=== PATIENT | female | born 1945 ===

== ENCOUNTER 2016-05-16 10:05 | Emergency (ER) | payer MEDICARE ==
[~2016-05-16] VITALS: Ht 162.6 cm; Wt 82.0 kg
[~2016-05-16 10:05] MED LIST: AMOXICILLIN/PO500 MG PO; ASTHMA INHALER; AUGMENTIN500TAB PO; AUGMENTIN875TAB PO; CEFTIN500 MG PO; CEPHALEXIN500 MG PO; KEFLEX500 MG PO; LIORESAL10 MG/TA1 PO; MEDDOSEPAK PO; NO MEDS; PREDNISONE20 MG PO; TAM75CAP PO; TESSALON PER100 MG PO; TYLENOL325 MG OR; ZPAK PO
[2016-05-16 10:43] VITALS: BP 157/81
== END 2016-05-16 11:04 | disposition home or self-care (01) ==
LOC: ED 10:05
DX: I83.892 Varicose veins of left lower extremity with other complications (principal)

== ENCOUNTER 2016-10-16 11:27 | Emergency (ER) | payer MEDICARE ==
[~2016-10-16] VITALS: Ht 162.6 cm; Wt 79.4 kg
[2016-10-16] MEDS ORDERED: ULTRAM50 M1 PO (15:06)
[2016-10-16 15:09] VITALS: BP 170/71
== END 2016-10-16 15:18 | disposition home or self-care (01) ==
LOC: ED 11:27
DX: S09.90XA Unspecified injury of head, initial encounter (principal); S40.011A Contusion of right shoulder, initial encounter; S80.01XA Contusion of right knee, initial encounter; W01.0XXA Fall on same level from slipping, tripping and stumbling without subsequent striking against object, initial encounter; Y93.E9 Activity, other interior property and clothing maintenance; Y92.009 Unspecified place in unspecified non-institutional (private) residence as the place of occurrence of the external cause

== ENCOUNTER 2017-09-25 18:45 | Observation (INO) | payer MEDICARE ==
[~2017-09-25] VITALS: Ht 162.6 cm; Wt 82.0 kg
[~2017-09-25 18:45] MED LIST changes: +ULTRAM50 M1 PO
[2017-09-25] MEDS ORDERED: ALBUTEROL0.63 MG/3 IN (19:15)
[2017-09-25] MEDS ORDERED: TRAMADOL HYDROC50 MG PO (19:16)
[2017-09-25 19:17] LABS: HEMATOCRIT 39.3 % (37.0-47.0); HEMOGLOBIN 12.7 g/dl (12.0-16.0); IMMATURE GRANULOCYTES 0.5 % (0.0-5.0); MEAN CELL VOLUME 84.9 fL CALC (80.0-100.0); MEAN CORPUSCULAR HGB 27.4 pG CALC (26.0-32.0); MEAN CORPUSCULAR HGB CONC 32.3 g/L CALC (32.0-36.0); NEUT# 4.13 thou/uL (2.00-7.15); RED BLOOD COUNT 4.63 mill/uL (4.20-5.60); RED CELL DISTRI WIDTH 13.5 % (11.5-15.5)
[2017-09-25 19:30] LABS: ALBUMIN 4.5 g/dL (3.2-5.0); ALKALINE PHOSPHATASE 111 u/l (38-126); ANION GAP 16 (6-22 (CALC)); BILIRUBIN, TOTAL 0.7 mg/dL (0.0-1.4); BUN 21 mg/dL (8-23); BUN/CREATININE RATIO 35 (12-20 (CALC)); CARBON DIOXIDE 21 mmol/l (22-30); CHLORIDE 107 mmol/l (95-108); CREATININE 0.6 mg/dL (0.5-1.0); GFR > 60 ML/MIN (>=60 (CALC)); GFR FOR AFR.AMER. > 60 ML/MIN (>=60 (CALC)); LIPASE 56 u/l (23-300); SGOT/AST 30 u/l (9-36); SGPT/ALT 36 u/l (11-66); SODIUM 141 mmol/l (137-146); TOTAL PROTEIN 8.1 g/dL (6.3-8.2)
[2017-09-25 19:44] LABS: POTASSIUM 3.2 mmol/l (3.5-5.1)
[2017-09-26 00:22] VITALS: BP 106/63
[2017-09-26 05:00] VITALS: BP 95/57
[2017-09-26 06:29] LABS: URINE BILIRUBIN - DIPSTICK NEGATIVE (NEGATIVE); URINE BLOOD DIPSTICK NEGATIVE (NEGATIVE); URINE COLOR YELLOW; URINE GLUCOSE - DIPSTICK NEGATIVE (NEGATIVE); URINE KETONE NEGATIVE (NEGATIVE); URINE LEUK ESTERASE NEGATIVE (NEGATIVE); URINE NITRITE - DIPSTICK NEGATIVE (Negative); URINE PH 5.5 (4.5-8.0); URINE PROTEIN - DIPSTICK NEGATIVE (NEG-TRACE); URINE UROBILINOGEN - DIPSTICK 0.2 E.U./dL (0.2)
[2017-09-26 06:33] LABS: URINE CLARITY CLEAR
[2017-09-26 07:50] VITALS: BP 145/74
[2017-09-26 12:41] VITALS: BP 126/60
[2017-09-26 17:15] VITALS: BP 131/71
[2017-09-26 18:13] LABS: HEMATOCRIT 39.8 % (37.0-47.0); HEMOGLOBIN 12.6 g/dl (12.0-16.0); MEAN CELL VOLUME 85.6 fL CALC (80.0-100.0); MEAN CORPUSCULAR HGB 27.1 pG CALC (26.0-32.0); MEAN CORPUSCULAR HGB CONC 31.7 g/L CALC (32.0-36.0); NEUT# 3.09 thou/uL (2.00-7.15); RED BLOOD COUNT 4.65 mill/uL (4.20-5.60); RED CELL DISTRI WIDTH 13.6 % (11.5-15.5)
[2017-09-26 18:26] LABS: ANION GAP 15 (6-22 (CALC)); BUN 11 mg/dL (8-23); BUN/CREATININE RATIO 19 (12-20 (CALC)); CARBON DIOXIDE 22 mmol/l (22-30); CHLORIDE 110 mmol/l (95-108); CREATININE 0.6 mg/dL (0.5-1.0); GFR > 60 ML/MIN (>=60 (CALC)); GFR FOR AFR.AMER. > 60 ML/MIN (>=60 (CALC)); SODIUM 143 mmol/l (137-146)
[2017-09-26 20:00] VITALS: BP 112/60
[2017-09-27 00:50] VITALS: BP 106/57
[2017-09-27 03:33] VITALS: BP 144/70
[2017-09-27 07:33] LABS: HEMATOCRIT 37.1 % (37.0-47.0); HEMOGLOBIN 11.4 g/dl (12.0-16.0); IMMATURE GRANULOCYTES 0.2 % (0.0-5.0); MEAN CELL VOLUME 88.5 fL CALC (80.0-100.0); MEAN CORPUSCULAR HGB 27.2 pG CALC (26.0-32.0); MEAN CORPUSCULAR HGB CONC 30.7 g/L CALC (32.0-36.0); NEUT# 2.31 thou/uL (2.00-7.15); RED BLOOD COUNT 4.19 mill/uL (4.20-5.60); RED CELL DISTRI WIDTH 13.8 % (11.5-15.5)
[2017-09-27 07:40] VITALS: BP 137/74
[2017-09-27 07:44] LABS: ANION GAP 13 (6-22 (CALC)); BUN 10 mg/dL (8-23); BUN/CREATININE RATIO 18 (12-20 (CALC)); CARBON DIOXIDE 18 mmol/l (22-30); CHLORIDE 113 mmol/l (95-108); CREATININE 0.5 mg/dL (0.5-1.0); GFR > 60 ML/MIN (>=60 (CALC)); GFR FOR AFR.AMER. > 60 ML/MIN (>=60 (CALC)); POTASSIUM 4.1 mmol/l (3.5-5.1); SODIUM 140 mmol/l (137-146)
== END 2017-09-27 12:04 | disposition home or self-care (01) ==
LOC: ED 18:45 → ED-I 19:50 → ED 20:14 → MS2 20:15
PROVIDERS: Family Medicine; ADMIT Internal Medicine Geriatric Medicine; ATTEND Internal Medicine Geriatric Medicine
DX: E86.0 Dehydration (principal); J45.909 Unspecified asthma, uncomplicated; I95.9 Hypotension, unspecified; I10 Essential (primary) hypertension; M19.90 Unspecified osteoarthritis, unspecified site; R55 Syncope and collapse; R11.2 Nausea with vomiting, unspecified

== ENCOUNTER 2017-10-06 19:45 | Observation (INO) | payer MEDICARE ==
[~2017-10-06] VITALS: Ht 162.6 cm; Wt 81.8 kg
[~2017-10-06 19:45] MED LIST changes: +ALBUTEROL0.63 MG/3 IN; +TRAMADOL HYDROC50 MG PO
[2017-10-06 20:22] LABS: HEMATOCRIT 41.9 % (37.0-47.0); IMMATURE GRANULOCYTES 0.3 % (0.0-5.0); MEAN CELL VOLUME 83.8 fL CALC (80.0-100.0); MEAN CORPUSCULAR HGB 27.4 pG CALC (26.0-32.0); MEAN CORPUSCULAR HGB CONC 32.7 g/L CALC (32.0-36.0); NEUT# 4.01 thou/uL (2.00-7.15); RED CELL DISTRI WIDTH 13.4 % (11.5-15.5)
[2017-10-06 20:27] LABS: HEMOGLOBIN 13.7 g/dl (12.0-16.0)
[2017-10-06 20:35] LABS: ALBUMIN 4.7 g/dL (3.2-5.0); ALKALINE PHOSPHATASE 116 u/l (38-126); BILIRUBIN, TOTAL 0.6 mg/dL (0.0-1.4); BUN 14 mg/dL (8-23); BUN/CREATININE RATIO 19 (12-20 (CALC)); CHLORIDE 104 mmol/l (95-108); CREATININE 0.7 mg/dL (0.5-1.0); GFR > 60 ML/MIN (>=60 (CALC)); GFR FOR AFR.AMER. > 60 ML/MIN (>=60 (CALC)); POTASSIUM 3.9 mmol/l (3.5-5.1); SGOT/AST 30 u/l (9-36); SGPT/ALT 40 u/l (11-66); SODIUM 143 mmol/l (137-146); TOTAL PROTEIN 8.5 g/dL (6.3-8.2)
[2017-10-06 20:37] LABS: ANION GAP 18 (6-22 (CALC)); CARBON DIOXIDE 25 mmol/l (22-30)
[2017-10-06 20:46] LABS: MYOGLOBIN 33 ng/mL (0 - 62)
--- NOTE | 2017-10-06 20:47 | NUR ---
PT ARRIVED VIA EMS AFTER DIZZINESS CALL. UPON ARRIVAL PT WAS FOUND TO BE APHASIC. COULD NOT EXPRESS ANSWERS TO QUESTION. PT CAN ANSWER SOME SIMPLE QUESTIONS BUT DOES HAVE SOME PROBLEMS EXPRESSING ANSWERS. SMALL AMOUNT OF FACIAL DROOP NOTED TO LEFT SIDE.
--- NOTE | 2017-10-06 21:35 | NUR ---
pt states that she is still feeling woozy. Denies nausea or vomiting. Tube Mill Operator are still equal, lower extremities still equal.
--- NOTE | 2017-10-06 21:54 | NUR ---
Talked to pt's son via telephone. He states that "he has never had a conversation with her like that before". States that she is "delerious". Pt is acting more coherent at this time.
--- NOTE | 2017-10-06 22:25 | NUR ---
STROKE ALERT PROCESS PAPERWORK DONE. STEPPED IN TO ASK PT HOW SHE IS FEELING NOW. PT STATES THAT SHE IS FEELING MUCH BETTER AT THIS TIME. FACIAL FOLD DROOP ON RIGHT SIDE HAS DISAPPEARED. PT IS TALKING MORE CLEAR & PERCISE AT THIS TIME.
[2017-10-06 23:04] LABS: URINE BILIRUBIN - DIPSTICK NEGATIVE (NEGATIVE); URINE BLOOD DIPSTICK NEGATIVE (NEGATIVE); URINE CLARITY CLEAR; URINE COLOR YELLOW; URINE GLUCOSE - DIPSTICK NEGATIVE (NEGATIVE); URINE KETONE NEGATIVE (NEGATIVE); URINE LEUK ESTERASE NEGATIVE (NEGATIVE); URINE NITRITE - DIPSTICK NEGATIVE (Negative); URINE PH 5.5 (4.5-8.0); URINE PROTEIN - DIPSTICK NEGATIVE (NEG-TRACE); URINE SPECIFIC GRAVITY <=1.005; URINE UROBILINOGEN - DIPSTICK 0.2 E.U./dL (0.2)
--- NOTE | 2017-10-06 23:26 | NUR ---
Admission Note Report Given to: ESTRELLA FERRER Transported by: Wheelchair X Stretcher Transported with: X Nurse Transporter X Patent IV X O2 Auditing Specialist TELEMETRY BOX #[id number]
[2017-10-06 23:41] VITALS: BP 156/76
--- NOTE | 2017-10-06 23:41 | NUR ---
PT TO ROOM 290 VIA STRETCHER ACCOMPANIED BY ER STAFF AND FRIEND. PT AMBULATED TO BED WITH MINIMAL ASSISTANCE. ORTHOSTATICS OBTAINED. ADMISSION ASSESSMENT COMPLETED AT THIS TIME. IV PATENT X1. PT IS ALERT AND ORIENTED X3. PT IS SLOW TO RESPOND TO QUESTIONS. PT ORIENTED TO ROOM AND UNIT AND CALL LIGHT SYSTEM. PT VERBALIZED UNDERSTANDING. CALL LIGHT IN REACH. WILL CONTINUE TO MONITOR
[2017-10-07] VITALS (9 sets, daily range): BP systolic 127–178; BP diastolic 71–78
--- NOTE | 2017-10-07 04:07 | NUR ---
PT RESTING IN BED WITH EYES CLOSED. RESP ARE EVEN AND UNLABORED. NO DISTRESS NOTED. CALL LIGHT IN REACH. WILL CONTINUE TO MONITOR
--- NOTE | 2017-10-07 04:30 | NUR ---
LAB INTO DRAW AM LABS
--- NOTE | 2017-10-07 05:23 | NUR ---
RADIOLOGY INTO COMPLETE AM XRAY
--- NOTE | 2017-10-07 06:05 | NUR ---
RT INTO COMPLETE AM EKG
[2017-10-07 06:06] LABS: HEMATOCRIT 39.1 % (37.0-47.0); HEMOGLOBIN 12.7 g/dl (12.0-16.0); IMMATURE GRANULOCYTES 0.2 % (0.0-5.0); MEAN CELL VOLUME 84.4 fL CALC (80.0-100.0); MEAN CORPUSCULAR HGB 27.4 pG CALC (26.0-32.0); MEAN CORPUSCULAR HGB CONC 32.5 g/L CALC (32.0-36.0); NEUT# 2.54 thou/uL (2.00-7.15); RED BLOOD COUNT 4.63 mill/uL (4.20-5.60); RED CELL DISTRI WIDTH 13.3 % (11.5-15.5)
[2017-10-07 06:13] LABS: ANION GAP 13 (6-22 (CALC)); BUN 12 mg/dL (8-23); BUN/CREATININE RATIO 21 (12-20 (CALC)); CARBON DIOXIDE 25 mmol/l (22-30); CHLORIDE 110 mmol/l (95-108); CREATININE 0.6 mg/dL (0.5-1.0); GFR > 60 ML/MIN (>=60 (CALC)); GFR FOR AFR.AMER. > 60 ML/MIN (>=60 (CALC)); POTASSIUM 3.7 mmol/l (3.5-5.1); SODIUM 144 mmol/l (137-146)
--- NOTE | 2017-10-07 07:00 | NUR ---
PT TRANSPORTED TO HAVE MRI, US AND CXR. VIA .
--- NOTE | 2017-10-07 08:45 | NUR ---
PT RETURNED FROM HAVING MRI, US AND CXR COMPLETED: ABLE TO TRANSFER FROM THE WC TO THE BED, VS STABLE. HR IS REG, PULSES ARE STRONG X4, ABD IS SOFT WITH ACTIVE BS.BREATH SOUNDS ARE CLEAR, BILATERALLY, NO C/O SOB, PT WAS TALKING AND INFORMED THIS COMMERCIAL SALES CONSULTANT THAT SHE HAD BEEN DIZZY BUT NOT AT THIS TIME,
--- NOTE | 2017-10-07 08:50 | NUR ---
CAME BACK AND SPOE WITH PT. PT EXPRESSED HER CONCERNS ABOUT WANTING TO GO HOME " I AM CATCHING A FLIGHT THIS AFTERNOON TO [place]". DR. HARPER EXPLAINED HE WILL CHECK ON THE TEST AND LET HER KNOW. PT ABLE TO EAT YOGURT. CONTINUE TO OSBERVE AND MONITOR
--- NOTE | 2017-10-07 10:30 | NUR ---
Myriam GUZMAN RNDIRECTOR OF NATIONAL SALES , CALLED OUT OF THE ROOM STATING "I NEED YOU". PT HAD BECOME NON VERBAL UNABLE TO ANSWER. AFTER 5 MINUTES PT ABLE TO SAY THIS WRITERS NAME AND STATED " I DONT FEEL GOOD" . ADMINISTRATIVE SALES ASSISTANT WAS CALLED AND INITIATED. HAD ANA FERRER COME AND SEE THE PT. STROKE ALERT HAD BEEN INITIATED. NOTIFIED DR. HARPER AT 1034 TO INFORM OF PT'S CONDITION, THAT A CTA AND CT WILL BE PERFORMED . VERBALIZED UNDERSTANDING AND STATED" GOOD".
--- NOTE | 2017-10-07 10:45 | NUR ---
I CALLED THE CINDER CREW WORKER AT 10:30 AND THE PT WENT DOWN TO CT @ 10:34 BY BOUBACAR. ANA FERRER AND JACQUELINE WILSON RN TRANSFERED THE PT FROM MED SURG TO CT.
--- NOTE | 2017-10-07 11:00 | NUR ---
ANOTHER IV SITE STARTED IN LAC WITH # 20 FOT THE CTA.
--- NOTE | 2017-10-07 11:53 | NUR ---
1035 PATIENT SEEN ON MED SURG ROOM 290. PATIENT AWAKE BUT MUTE UPPER AND LOWER EXTREMITIES NO MOVEMENT. PATIENT ATAXIC, UNABLE TO FOLLOW COMMANDS. PATIENT UNABLE TO DETERMINE TOUCH ON EITHER SIDE OF BODY. STOKE ALERT CALLED AND PATIENT TRANSPORTED TO RADIOLOGY FOR CT AND POSSIBLE CTA HEAD AND NECK. 1102 CT HEAD COMPLETED AND PATIENT AWAITING RESULTS TO BE ABLE TO PERFORM CTA. PATIENT SYMPTOMS RESOLVING. PATIENT SEVERLY ASPHASIC, DRIFT ON RIGHT UPPER EXTREMITY AND ATAXIC ON RIGHT UPPER AND LOWER EXTREMITY. PATIENT AROUSABLE AND ANSWERS NAME CORRECTLY BUT NOT WHAT MONTH IT IS. PATIENT UNABLE TO SQUEEZE AND LET GO OF HANDS AND IS NOT TRACKING LEFT TO RIGHT WITH EYES. PATIENT MOVED TO EMERGENCY ROOM WITH PRIMARY NURSE TO COMPLETE TELESTROKE. [address] KELLER NO TPA RECOMMENDED BUT WOULD LIKE TO HAVE PATIENT TRANSPORTED TO [facility] FOR FURTHER EVAL. DR HARPER AT BEDSIDE AND ACKNOWLEDGED RECOMMENDATIONS FROM DR KELLER. PATIENT SYMPTOMS STILL RESOLVING. PATIENT HAS RIGHT LOWER EXTREMITY DRIFT, MILDY ASPHASIC, RIGHT UPPER EXTREMITY ATAXIA AND REMAINS CONFUSED. PATIENT MOVED FROM ER TO ICU 1 AND REPORT GIVEN TO SHARAN NAVARRO RN
--- NOTE | 2017-10-07 11:59 | NUR ---
PT TRANSFERED TO ICU 1 FROM MSU AFTER STROKE LIKE SYMPTOMS. PT UNABLE TO SPEAK WITH LEFT SIDED WEAKNESS x5 MINS. WITNESSED BY KAILA, CASE MANAGEMENT AT 1030 TODAY. TELENEURO COMPLETED BY ER. PT ONLY HAS MILD DROP TO LEFT MOUTH UPON ARRIVAL. PT STATES SHE FEELS NAUSEOUS & "OUT OF IT" LIKE DIZZINESS. NANCY @BEDSIDE. PER DR HARPER, PT WILL GET A REPEAT MRI W/DIFFUSION, THEN BE TRANSPORTED TO [facility] FOR NEURO BY GROUND.
--- NOTE | 2017-10-07 12:25 | NUR ---
ANA FROM ER RETURNED PTS JEWELRY TO PT. PTS BELONGINGS BAG BROUGHT OVER FROM MSU, INCLUDING GLASSES.
--- NOTE | 2017-10-07 12:46 | NUR ---
SPOKE WITH [facility] TRANSFER CENTER. THEY WILL CALL BACK AFTER SHE FINDS AN ATTENDING TO CONFERENCE CALL WITH DR HARPER RE: TRANSFER.
--- NOTE | 2017-10-07 14:10 | NUR ---
PHYLLIS FROM [facility] PHON, DR.JOEL KENYON IS HOSPITALIST ACCEPTING, CONTINUE TO AWAIT BED ASSIGNMENT, CELL NUMBER PROVIDED FRO DR KENYON TO OBTAIN REPORT FROM .
--- NOTE | 2017-10-07 14:47 | NUR ---
PHYLLIS FROM [facility] CALLED WITH BED ASSIGNMENT, ROOM 595 B ASSIGNED AND PHONE NUMBER FOR REPORT [phone]
--- NOTE | 2017-10-07 14:59 | NUR ---
SPOKE WITH RAVINDER WITH [facility]. TRANSPORT ETA 20-30 MINS. PT & FAMILY AWARE.
--- NOTE | 2017-10-07 15:10 | NUR ---
RECVING CARISSA WCB
--- NOTE | 2017-10-07 15:32 | NUR ---
[facility] @BEDSIDE.
--- NOTE | 2017-10-07 15:43 | NUR ---
REPORT TO GEN @[facility].
--- NOTE | 2017-10-07 15:54 | NUR ---
PT OUT THE DOOR WITH [facility] IN STABLE CONDITION.
== END 2017-10-07 15:54 | disposition short-term general hospital (02) ==
LOC: ED 19:45 → ED-I 20:25 → ED 23:00 → MS2 23:01 → ICU 10-07 11:35
PROVIDERS: Emergency Medicine; ADMIT Internal Medicine Geriatric Medicine; ATTEND Internal Medicine Geriatric Medicine
DX: R55 Syncope and collapse (principal); E86.0 Dehydration; R11.2 Nausea with vomiting, unspecified; R42 Dizziness and giddiness; I95.9 Hypotension, unspecified; J45.909 Unspecified asthma, uncomplicated
CPT/HCPCS: Q9967

== ENCOUNTER 2018-08-23 23:34 | Observation (INO) | payer MEDICARE ==
[~2018-08-23] VITALS: Ht 157.5 cm; Wt 84.0 kg
--- NOTE | 2018-08-23 23:50 | NUR ---
PT. TO ROOM 10 VIA EMS WITH C\O AWAKINING THIS EVENING AND FEELING DIZZY, VOMITING AND DIARRHEA, EMS ADMINISTERED IV ANTIEMETIC AND IVF. SKIN WARM AND DRY TO TOUCH, COLOR WNL, RESP. EVEN AND UNLABORED. BILATERAL LUNG CASTILLO ARE CTA. NO EDEMA NOTED TO BLE.
[2018-08-24 00:16] LABS: HEMATOCRIT 39.3 % (37.0-47.0); HEMOGLOBIN 12.6 g/dl (12.0-16.0); IMMATURE GRANULOCYTES 0.3 % (0.0-5.0); MEAN CELL VOLUME 85.4 fL CALC (80.0-100.0); MEAN CORPUSCULAR HGB 27.4 pG CALC (26.0-32.0); MEAN CORPUSCULAR HGB CONC 32.1 g/L CALC (32.0-36.0); NEUT# 4.93 thou/uL (2.00-7.15); RED BLOOD COUNT 4.6 mill/uL (4.20-5.60); RED CELL DISTRI WIDTH 13.8 % (11.5-15.5)
--- NOTE | 2018-08-24 00:50 | NUR ---
PT. RESTING IN BED, NO C/O DIZZIENESS OR C/O NAUSEA OR VOMITING. HOB ELEVATED. V/S STABLE.
[2018-08-24 01:01] LABS: BUN 19 mg/dL (8-23); BUN/CREATININE RATIO 32 (12-20 (CALC)); CREATININE 0.6 mg/dL (0.5-1.0); GFR > 60 ML/MIN (>=60 (CALC)); GFR FOR AFR.AMER. > 60 ML/MIN (>=60 (CALC))
[2018-08-24 01:02] LABS: ALBUMIN 4.2 g/dL (3.2-5.0); ANION GAP 15 (6-22 (CALC)); BILIRUBIN, TOTAL 0.6 mg/dL (0.0-1.4); CARBON DIOXIDE 24 mmol/l (22-30); CHLORIDE 108 mmol/l (95-108); POTASSIUM 3.7 mmol/l (3.5-5.1); SODIUM 143 mmol/l (137-146)
[2018-08-24 01:03] LABS: ALKALINE PHOSPHATASE 103 u/l (38-126); SGOT/AST 33 u/l (9-36)
[2018-08-24 01:09] LABS: MYOGLOBIN 52 ng/mL (0 - 62)
[2018-08-24 01:12] LABS: URINE BILIRUBIN - DIPSTICK NEGATIVE (NEGATIVE); URINE BLOOD DIPSTICK NEGATIVE (NEGATIVE); URINE COLOR YELLOW; URINE GLUCOSE - DIPSTICK NEGATIVE (NEGATIVE); URINE KETONE NEGATIVE (NEGATIVE); URINE LEUK ESTERASE NEGATIVE (NEGATIVE); URINE NITRITE - DIPSTICK NEGATIVE (Negative); URINE PROTEIN - DIPSTICK NEGATIVE (NEG-TRACE); URINE UROBILINOGEN - DIPSTICK 0.2 E.U./dL (0.2)
--- NOTE | 2018-08-24 01:26 | NUR ---
MD IN ROOM TO DISCUSS CLINICAL FINDINGS WITH PT. AND TO ALSO MAKE HER AWARE OF ADMISSION, VERBALIZED UNDERSTANDING.
--- NOTE | 2018-08-24 01:42 | NUR ---
Admission Note Report Given to: JEROME FERRER Transported by: Wheelchair X Stretcher Transported with: X Nurse Transporter X Patent IV O2 X State Federal Relations Deputy Director
--- NOTE | 2018-08-24 01:45 | NUR ---
TRANSFERED TO [facility] VIA STRETCHER.
[2018-08-24 01:50] VITALS: BP 150/69
--- NOTE | 2018-08-24 02:48 | NUR ---
0146-patient to R280, via stretcher, accompanied by CARISSA Christie. on room air, able to ambulate from stretcher to bed with slow unsteady gait, no s/s of distress noted, states lives alone at home, family lives out of state, only have friends here, states that feels safe at home, school bus monitor in place, iv site is patent, EMS site, states sometimes uses a walker at home, wears prescriptions glassess, educated about call [place] system, safety measures, plan of care and frequently roundings, encouraged to call if needed, vss, afebrile, no pain or needs reported at this time. Will monitor closely..
[2018-08-24 04:09] VITALS: BP 125/64
--- NOTE | 2018-08-24 06:55 | NUR ---
REPORT RECEIVED FROM JEROMERN;PT RESTING IN SEMI FOWLERS POSITION;INTRODUCED SELF TO PT AND POC DISCUSSED;RESPIRATIONS EVEN AND UNLABORED ON RA;PT DENIES ANY CURRENT PAIN OR DISCOMFORTS;TELE MONITORING IN PLACE;PT ENCOURAGED TO CALL FOR ASSISTANCE IF NEEDED;FALL PRECAUTIONS IN PLACE WITH BED IN THE LOWEST POSITION AND CALL LIGHT IN REACH;WILL CONTINUE TO MONITOR
--- NOTE | 2018-08-24 08:50 | NUR ---
PT RESTING IN SEMI FOWLERS POSITION, A&O X4;VS OBTAINED AND ASSESSMENT COMPLETED;PT CURRENT HR 54;PT DENIES ANY CURRENT PAIN BUT DOES REPORT NAUSEA;PT DENIES THE NEED FOR PRN ANTIEMETIC AT THIS TIME;PAIN SCALE AND REPORTING EDUCATED AND EMESIS BAG PROVIDED;RESPIRATIONS EVEN AND UNLABORED ON RA WITH CLEAR LUNG SOUNDS;ABDOMEN SOFT ON PALPATION AND ACTIVE IN ALL 4 QUADRANTS;STRONG PEDAL PULSES;SKIN INTACT;TELE MONITORING IN PLACE;#20G TO LEFT HAND FLUSHED AND PATENT,SITE APPEARS HEALTHY;PT DENIES ANY ADDITIONAL NEEDS AT THIS TIME AND IS ENCOURAGED TO CALL FOR ASSISTANCE IF NEEDED;FALL PRECAUTIONS IN PLACE WITH BED IN THE LOWEST POSITION AND CALL LIGHT IN REACH;WILL CONTINUE TO MONITOR
[2018-08-24 08:54] VITALS: BP 133/74
[2018-08-24 08:59] LABS: HEMATOCRIT 39.4 % (37.0-47.0); HEMOGLOBIN 12.3 g/dl (12.0-16.0); IMMATURE GRANULOCYTES 0.3 % (0.0-5.0); MEAN CORPUSCULAR HGB 26.9 pG CALC (26.0-32.0); MEAN CORPUSCULAR HGB CONC 31.2 g/L CALC (32.0-36.0); NEUT# 3.93 thou/uL (2.00-7.15); RED BLOOD COUNT 4.58 mill/uL (4.20-5.60); RED CELL DISTRI WIDTH 13.8 % (11.5-15.5)
[2018-08-24 09:36] LABS: ALBUMIN 4.2 g/dL (3.2-5.0); ALKALINE PHOSPHATASE 98 u/l (38-126); ANION GAP 14 (6-22 (CALC)); BILIRUBIN, TOTAL 0.7 mg/dL (0.0-1.4); BUN 16 mg/dL (8-23); BUN/CREATININE RATIO 29 (12-20 (CALC)); CARBON DIOXIDE 24 mmol/l (22-30); CHLORIDE 109 mmol/l (95-108); CREATININE 0.6 mg/dL (0.5-1.0); GFR > 60 ML/MIN (>=60 (CALC)); GFR FOR AFR.AMER. > 60 ML/MIN (>=60 (CALC)); POTASSIUM 4.2 mmol/l (3.5-5.1); SGOT/AST 32 u/l (9-36); SODIUM 143 mmol/l (137-146); TOTAL PROTEIN 6.9 g/dL (6.3-8.2)
[2018-08-24 11:00] VITALS: BP 135/72
--- NOTE | 2018-08-24 11:40 | NUR ---
PT RESTING IN SEMI FOWLERS POSITION WITH VISITOR AT BEDSIDE;RESPIRATIONS EVEN AND UNLABORED ON RA;PT DENIES ANY CURRENT PAIN AND REPORTS THAT NAUSEA IS STARTING TO SUBSIDE, STILL DENIES THE NEED FOR ANTIEMETIC;TELE MONITORING IN PLACE;IV SITE PATENT;ASSESSMENT REMAINS UNCHANGED AT THIS TIME;ENCOURAGED TO CALL FOR ASSISTANCE IF NEEDED;CALL LIGHT IN REACH;WILL CONTINUE TO MONITOR
--- NOTE | 2018-08-24 14:21 | NUR ---
PT REPORTS HEADACHE PAIN RATING 3/10 ON THE PAIN SCALE AND REQUESTS PAIN MEDICATION;PT MEDICATED WITH PRN TYLENOL 650 MG PO AT THIS TIME;WILL MONITOR FOR EFFECTIVENESS
[2018-08-24 15:26] VITALS: BP 136/70
--- NOTE | 2018-08-24 16:00 | NUR ---
PT RESTING IN SEMI FOWLERS POSITION;RESPIRATIONS EVEN AND UNLABORED ON RA;PT REPORTS THAT HEADACHE PAIN HAS SUBSIDED AT THIS TIME;TELE MONITORING IN PLACE;EMS IV SITE TO REMAINS PATENT;PT DENIES ANY CURRENT NEEDS AND IS ENCOURAGED TO CALL FOR ASSISTANCE IF NEEDED;CALL LIGHT IN REACH;WILL CONTINUE TO MONITOR
--- NOTE | 2018-08-24 17:30 | NUR ---
PT EDUCATED ON EMS IV SITE EXPIRATION DATE AND REFUSES SITE CHANGE AT THIS TIME STATING "IM NICKNA BE DISCHARGED IN THE MORNING".
[2018-08-24 19:13] VITALS: BP 141/71
--- NOTE | 2018-08-24 19:52 | NUR ---
PT. SITTING UP IN BED WITH NO DISTRESS NOTED; ASSSESSMENT COMPLETED. IV SITE PATENT AND SL, FLUSHES WELL. PT. DENIES ANYMORE BM'S OTHER THAN THE 2 PREVIOUSLY IN THE DAYTIME. PT. VOICES NO CONCERNS. CALL LIGHT IS IN REACH. WILL CONTINUE TO MONITOR.
--- NOTE | 2018-08-24 23:08 | NUR ---
RESTING IN BED WITH NO DISTRESS NOTED. DENIES NEEDS. VISITOR IN AT BEDSIDE. CALL LIGHT IS IN REACH.
[2018-08-25 00:26] VITALS: BP 129/68
--- NOTE | 2018-08-25 03:35 | NUR ---
PT. RESTING IN BED WITH NO DISTRESS NOTED; DENIES NEEDS/PAIN. ENCOURAGED TO CALL FOR ANY NEEDS. CALL LIGHT IS IN REACH.
[2018-08-25 05:43] LABS: HEMOGLOBIN 12.3 g/dl (12.0-16.0); IMMATURE GRANULOCYTES 0.2 % (0.0-5.0); MEAN CELL VOLUME 86.9 fL CALC (80.0-100.0); MEAN CORPUSCULAR HGB 27.4 pG CALC (26.0-32.0); MEAN CORPUSCULAR HGB CONC 31.5 g/L CALC (32.0-36.0); NEUT# 3.29 thou/uL (2.00-7.15); RED BLOOD COUNT 4.49 mill/uL (4.20-5.60); RED CELL DISTRI WIDTH 13.8 % (11.5-15.5)
[2018-08-25 06:20] LABS: ALBUMIN 3.6 g/dL (3.2-5.0); ALKALINE PHOSPHATASE 86 u/l (38-126); ANION GAP 13 (6-22 (CALC)); BILIRUBIN, TOTAL 0.6 mg/dL (0.0-1.4); BUN 15 mg/dL (8-23); BUN/CREATININE RATIO 27 (12-20 (CALC)); CARBON DIOXIDE 24 mmol/l (22-30); CHLORIDE 109 mmol/l (95-108); CREATININE 0.6 mg/dL (0.5-1.0); GFR > 60 ML/MIN (>=60 (CALC)); GFR FOR AFR.AMER. > 60 ML/MIN (>=60 (CALC)); POTASSIUM 3.8 mmol/l (3.5-5.1); SGOT/AST 29 u/l (9-36); SODIUM 142 mmol/l (137-146); TOTAL PROTEIN 6.2 g/dL (6.3-8.2)
[2018-08-25 06:29] VITALS: BP 136/70
--- NOTE | 2018-08-25 07:15 | NUR ---
REPORT RECEIVED FROM KIRANRN;PT OOB RESTING IN CHAIR;INTRODUCED SELF TO PT AND POC DISCUSSED;PT DENIES ANY CURRENT PAIN OR DISCOMFORTS;TELE MONITORING IN PLACE;PT ENCOURAGED TO CALL FOR ASSISTANCE IF NEEDED;FALL PRECAUTIONS IN PLACE WITH CALL LIGHT IN REACH;WILL CONTINUE TO MONITOR
--- NOTE | 2018-08-25 08:40 | NUR ---
AT BEDSIDE DISCUSSING PO WITH PT INCLUDING DISCHARGE HOME,PT VERBALIZES UNDRSTANDING.
[2018-08-25] MEDS ORDERED: HYDRALAZINE25 MG PO (08:51)
[2018-08-25 09:00] VITALS: BP 137/64
--- NOTE | 2018-08-25 09:00 | NUR ---
PT OOB RESTING IN RECLINER, A&O X4;VS OBTAINED AND ASSESSMENT COMPLETED, CURRENT BP 137/64 HR 60;PT DENIES ANY CURRENT PAIN OR DISCOMFORTS,PAIN SCALE AND REPORTING EDUCATED;RESPIRATIONS EVEN AND UNLABORED ON RA,CLEAR LUNG SOUNDS NOTED;ABDOMEN SOFT ON PALPATION AND ACTIVE IN ALL 4 QUADRANTS;STRONG PEDAL PULSES;SKIN INTACT;EMS #20G TO LEFT HAND FLUSHED AND PATENT,SITE APPEARS HEALTHY;TELE MONITORING IN PLACE;PT RE-EDUCATED ON DISCHARGE PLAN AND VERBALIZES UNDERSTANDING;ENCOURAGED PT TO CALL FOR ASSISTANCE IF NEEDED;FALL PRECAUTIONS IN PLACE WITH CALL LIGHT IN REACH;WILL CONTINUE TO MONITOR
[2018-08-25 09:02] VITALS: BP 137/64
--- NOTE | 2018-08-25 10:00 | NUR ---
ALL DISCHARGE INSTRUCTIONS PROVIDED AT THIS TIME,QUESTIONS ANSWERED;PT INSTRUCTED TO CAUL PULLER RX AT PHARMACY FOR APRESOLINE AND MONITOR HE BP;IV SITE REMOVED WITH CATHETER INTACT;PT DENIES ANY ADDITIONAL NEEDS AT THIS TIME;WHEELCHAIR TO BE PROVIDED FOR D/C HOME.
--- NOTE | 2018-08-25 10:10 | NUR ---
Discharge instructions given. Patient verbalizes understanding of same. Discharged in stable condition via Wheelchair to Home with family. All belongings sent with pt. Pt transported to [facility] via wheelchair in stable condition accompanied by volunteer for d/c home. family member to transport pt home.
== END 2018-08-25 10:10 | disposition home or self-care (01) ==
LOC: ED 23:34 → ED-I 08-24 01:10 → ED 08-24 01:33 → MS2 08-24 01:34
PROVIDERS: Emergency Medicine; ADMIT Internal Medicine Geriatric Medicine; ATTEND Internal Medicine Geriatric Medicine
DX: G44.209 Tension-type headache, unspecified, not intractable (principal); E86.0 Dehydration; I95.9 Hypotension, unspecified; Z60.2 Problems related to living alone

== ENCOUNTER 2018-09-20 16:15 | Observation (INO) | payer MEDICARE ==
[~2018-09-20] VITALS: Ht 157.5 cm; Wt 81.6 kg
[~2018-09-20 16:15] MED LIST changes: +HYDRALAZINE25 MG PO
[2018-09-20 16:34] VITALS: BP 154/71
--- NOTE | 2018-09-20 16:34 | NUR ---
ORDERS FAXED TO PHARMACY
--- NOTE | 2018-09-20 16:34 | NUR ---
PT TO ICU 7 BY WC FROM REGISTRATION. PT REQUEST TO CHANGE SELF INTO GOWN.
--- NOTE | 2018-09-20 16:40 | NUR ---
PT ARRIVED TO ICU BED 7 VIA W/C DIRECT ADMIT OF DR. HARPER. PT A&0X3 ABLE TO MAKE NEEDS KNOWN. PT DROVE SELF TO HOSPITAL. PT DENIES DIZZINESS, N/V AT THIS TIME. PT STATES BAD H/A AT THIS TIME, TO BE MEDICATED ORDERED. PT TRANSFERRED SELF TO BED FROM W/C, SLOW STEADY GAIT AT THIS TIME. PT EDUCATED ON SAFETY AND CALL LIGHT SYSTEM. PT VERBALIZED UNDERSTANDING AND STATED SHE WILL CALL FOR ASSISTANCE. ASSESSMENT COMPLETED. CALL LIGHT IN REACH. WILL MONITOR.
--- NOTE | 2018-09-20 17:05 | NUR ---
#22 STARTED ON LFA, LABS DRAWN, SITE LABELED.
--- NOTE | 2018-09-20 17:15 | NUR ---
DR HARPER @BEDSIDE WITH PT.
--- NOTE | 2018-09-20 17:29 | NUR ---
RT @BEDSIDE FOR EKG.
[2018-09-20 17:30] VITALS: BP 147/73
[2018-09-20 17:31] LABS: HEMATOCRIT 38.4 % (37.0-47.0); HEMOGLOBIN 12.5 g/dl (12.0-16.0); IMMATURE GRANULOCYTES 0.2 % (0.0-5.0); MEAN CELL VOLUME 84.8 fL CALC (80.0-100.0); MEAN CORPUSCULAR HGB 27.6 pG CALC (26.0-32.0); MEAN CORPUSCULAR HGB CONC 32.6 g/L CALC (32.0-36.0); NEUT# 2.68 thou/uL (2.00-7.15); RED BLOOD COUNT 4.53 mill/uL (4.20-5.60)
[2018-09-20 17:49] LABS: ALBUMIN 4.3 g/dL (3.2-5.0); ALKALINE PHOSPHATASE 97 u/l (38-126); ANION GAP 13 (6-22 (CALC)); BILIRUBIN, TOTAL 0.6 mg/dL (0.0-1.4); BUN 14 mg/dL (8-23); BUN/CREATININE RATIO 24 (12-20 (CALC)); CARBON DIOXIDE 24 mmol/l (22-30); CHLORIDE 108 mmol/l (95-108); CREATININE 0.6 mg/dL (0.5-1.0); GFR > 60 ML/MIN (>=60 (CALC)); GFR FOR AFR.AMER. > 60 ML/MIN (>=60 (CALC)); POTASSIUM 3.8 mmol/l (3.5-5.1); SGOT/AST 34 u/l (9-36); SODIUM 141 mmol/l (137-146)
--- NOTE | 2018-09-20 17:52 | NUR ---
CALLED DR HARPER D/T FLAG WHEN TRYING TO GIVE TORADOL FOR DUONG FOR PT WITH ASA ALLERGY. PER DR HARPER, "GIVE IT ANYWAY AND LETS SEE WHAT HAPPENS"
[2018-09-20 18:00] VITALS: BP 152/80
--- NOTE | 2018-09-20 18:01 | NUR ---
UA COLLECTED FOR LAB
[2018-09-20 18:38] LABS: URINE BILIRUBIN - DIPSTICK NEGATIVE (NEGATIVE); URINE BLOOD DIPSTICK NEGATIVE (NEGATIVE); URINE COLOR YELLOW; URINE GLUCOSE - DIPSTICK NEGATIVE (NEGATIVE); URINE KETONE NEGATIVE (NEGATIVE); URINE LEUK ESTERASE NEGATIVE (Negative); URINE NITRITE - DIPSTICK NEGATIVE (Negative); URINE PH 5.5 (4.5-8.0); URINE PROTEIN - DIPSTICK NEGATIVE (NEG-TRACE); URINE UROBILINOGEN - DIPSTICK 0.2 E.U./dL (0.2)
[2018-09-20 18:39] LABS: URINE CLARITY CLEAR
[2018-09-20 19:30] VITALS: BP 154/77
--- NOTE | 2018-09-20 19:30 | NUR ---
PT. SITTING UP IN BED WITH FAMILY MEMBER AT BEDSIDE; NO DISTRESS NOTED; B/P 154/77 AND MEDICATED WITH ORDERED APRESOLINE ALONG WITH PRN ANTIVERT FOR C/O DIZZINESS AND STATES," I DONT EVEN FEEL LIKE MY HEAD IS ATTACHED TO MY BODY." PT. IS ABLE TO MOVE ALL EXTREMETIES. PT. REPROTS SHE DOES NOT WANT TO LIFT HR HEAD AND REPORTS IT WILL MAKE IT WORSE. PT. IS UPDATED ON POC. DENIES NEEDS AT THIS TIME. WILL CONTINUE TO MONITOR. BEEF LUGGER ON AND READING SB 59. ENCOURAGED TO CALL FOR ANY NEEDS. CALL LIGHT IS IN REACH. WILL CONTINUE TO MONTIOR.
--- NOTE | 2018-09-20 20:30 | NUR ---
PT. RESTING IN BED AND PROVIDED WITH COOL WASH CLOTH TO FOREHEAD. PT. CONTINUES TO REPORT DIZZINESS; PT. REPORTS AT THIS TIME SHE DOES NOT WANT ATIVAN SHE DOES NOT WANT TO TAKE ANYTHING WHILE SHE IS STILL DIZZY. INSTRUCTED PT. TO CALL THIS PERIPHERAL EDP EQUIPMENT OPERATOR IF SHE CHANGES HER MIND; VERBALIZES UNDERSTANDING.
--- NOTE | 2018-09-20 21:45 | NUR ---
PT. REPORTS DIZZINESS HAS SUBSIDING AND STILL WANTS TO WAIT TO TAKE ATIVAN. PT. WILL NOTIFY MUSICAL PERFORMER WHEN READY.
--- NOTE | 2018-09-20 23:15 | NUR ---
PT. NOW MEDICATED WITH NIGHT TIME ATIVAN, PT. WANTED TO WAIT UNTIL XRAY WAS PERFORMED AND DIZZINESS SUBSIDED. VSS. DENIES FURTHER NEEDS. CALL LIGHT IS IN REACH.
[2018-09-21] VITALS (7 sets, daily range): BP systolic 114–146; BP diastolic 57–74
--- NOTE | 2018-09-21 04:00 | NUR ---
PT. ASSISTED TO AND FROM BSC; NO DISTRESS NOTED; VSS. PT. VOICES NO CONCERNS. CALL LIGHT IS IN REACH. WILL CONTINUE TO MONITOR.
[2018-09-21 05:24] LABS: HEMATOCRIT 36.9 % (37.0-47.0); HEMOGLOBIN 11.9 g/dl (12.0-16.0); IMMATURE GRANULOCYTES 0.2 % (0.0-5.0); MEAN CELL VOLUME 86.6 fL CALC (80.0-100.0); MEAN CORPUSCULAR HGB 27.9 pG CALC (26.0-32.0); MEAN CORPUSCULAR HGB CONC 32.2 g/L CALC (32.0-36.0); NEUT# 2.19 thou/uL (2.00-7.15); RED BLOOD COUNT 4.26 mill/uL (4.20-5.60); RED CELL DISTRI WIDTH 13.8 % (11.5-15.5)
[2018-09-21 05:50] LABS: ALBUMIN 3.5 g/dL (3.2-5.0); ALKALINE PHOSPHATASE 73 u/l (38-126); ANION GAP 13 (6-22 (CALC)); BILIRUBIN, TOTAL 0.7 mg/dL (0.0-1.4); BUN 10 mg/dL (8-23); BUN/CREATININE RATIO 20 (12-20 (CALC)); CARBON DIOXIDE 23 mmol/l (22-30); CHLORIDE 111 mmol/l (95-108); CREATININE 0.5 mg/dL (0.5-1.0); GFR > 60 ML/MIN (>=60 (CALC)); GFR FOR AFR.AMER. > 60 ML/MIN (>=60 (CALC)); POTASSIUM 3.4 mmol/l (3.5-5.1); SGOT/AST 30 u/l (9-36); SODIUM 143 mmol/l (137-146); TOTAL PROTEIN 6.1 g/dL (6.3-8.2)
--- NOTE | 2018-09-21 06:59 | NUR ---
REPORT RECVD FROM KIRAN @START OF SHIFT.
--- NOTE | 2018-09-21 07:30 | NUR ---
PT SLEEPING ON RIGHT SIDE, NO S/S OF DISTRESS. BREAKFAST TRAY LEFT ON BEDSIDE TABLE. WILL CONTINUE TO MONITOR.
--- NOTE | 2018-09-21 08:02 | NUR ---
PER RADIOLOGY, [facility] WILL TRANSPORT PT TO MRI AROUND 929.
--- NOTE | 2018-09-21 08:32 | NUR ---
PT REQUEST I ADD TORADOL TO HER ALLERGY LIST BC IT MADE HER VERY DIZZY. PT ALSO WANTED ME TO ASK THE DR FOR A RX FOR ANTIVERT WHEN SHE LEAVES IT WORKS MUCH BETTER THAN MECLIZINE THAT DOESNT DO ANYTHING FOR HER. DR HARPER AWARE.
--- NOTE | 2018-09-21 09:18 | NUR ---
PT SITTING ON BSC FOR BM. [facility] WILL COME BACK TO TAKE TO MRI. RADIOLOGY AWARE OF DELAY.
--- NOTE | 2018-09-21 09:22 | NUR ---
PT REFUSED ATIVAN OFFERED FOR MRI. STATES "SHES FINE".
--- NOTE | 2018-09-21 09:35 | NUR ---
PT TRANSPORTED TO MRI BY [facility] BY WC IN STABLE CONDITION.
--- NOTE | 2018-09-21 10:45 | NUR ---
PT RETURNED TO ICU 7 FROM MRI W/OUT INCIDENT.
--- NOTE | 2018-09-21 11:30 | NUR ---
PT UP TO BSC FOR URINATION/BM.
--- NOTE | 2018-09-21 12:16 | NUR ---
NOTIFIED DR PLATA OFFICE OF MRI RESULTS BACK.
[2018-09-21] MEDS ORDERED: ANTIVERT12.5 MG PO (13:24)
--- NOTE | 2018-09-21 13:33 | NUR ---
DR HARPER NOTIFIED THAT PT IS DIZZY AGAIN BUT DENIES N/V/D & PAIN.
--- NOTE | 2018-09-21 14:00 | NUR ---
CALLED TO PTS ROOM FOR ASSISTANCE TO BSC, UPON ARRIVAL AT ROOM PT ALREADY SITTING DOWN ON BSC. PT REMINDED TO WAIT ON STAFF BEFORE GETTING OUT OF BED. PT INQUIRED ABOUT DC, TOLD DR HARPER SHOULD BE PUTTING IN DC ORDERS BUT SHE WILL NEED SOMEONE TO COME GET HER SINCE SHE IS DIZZY.
--- NOTE | 2018-09-21 14:54 | NUR ---
DC PTS IV, TIP INTACT, DRESSING APPLIED. PT REQUEST TO DRESS SELF.
--- NOTE | 2018-09-21 15:04 | NUR ---
PT EDUCATED ON DC INSTRUCTIONS INCLUDING NEW RX & IMPORTANCE OF F/UP & DANGERS OF DRIVING WHILE DIZZY. OVERHEARD PT ON THE PHONE STATING SHE JUST NEEDS A RIDE OUT OF HERE THEN JUST COME BACK TO COPIER AND PRINTER FIELD TECHNICIAN HER CAR LATER.
--- NOTE | 2018-09-21 15:07 | NUR ---
[facility] @BEDSIDE TO TAKE PT DOWN TO FRIEND TAKING HER HOME. PT ABLE TO TRANSFER W/OUT DIFFICULTY. PT OUT OF UNIT IN STABLE CONDITION.
== END 2018-09-21 15:07 | disposition home or self-care (01) ==
LOC: ICU 16:15
PROVIDERS: ADMIT Internal Medicine Geriatric Medicine; ATTEND Internal Medicine Geriatric Medicine
DX: R42 Dizziness and giddiness (principal); R11.2 Nausea with vomiting, unspecified; I95.9 Hypotension, unspecified; R55 Syncope and collapse; G44.209 Tension-type headache, unspecified, not intractable; H92.03 Otalgia, bilateral; I12.9 Hypertensive chronic kidney disease with stage 1 through stage 4 chronic kidney disease, or unspecified chronic kidney disease; N18.9 Chronic kidney disease, unspecified; I25.10 Atherosclerotic heart disease of native coronary artery without angina pectoris
CPT/HCPCS: J2060

== ENCOUNTER 2018-10-08 20:27 | Emergency (ER) | payer MEDICARE ==
[~2018-10-08] VITALS: Ht 157.5 cm; Wt 79.5 kg
[~2018-10-08 20:27] MED LIST changes: +ANTIVERT12.5 MG PO
[2018-10-08 21:25] LABS: HEMATOCRIT 36.2 % (37.0-47.0); HEMOGLOBIN 11.6 g/dl (12.0-16.0); IMMATURE GRANULOCYTES 0.2 % (0.0-5.0); MEAN CORPUSCULAR HGB 27.6 pG CALC (26.0-32.0); NEUT# 3.5 thou/uL (2.00-7.15); RED BLOOD COUNT 4.21 mill/uL (4.20-5.60)
[2018-10-08 21:39] LABS: ALKALINE PHOSPHATASE 96 u/l (38-126); ANION GAP 12 (6-22 (CALC)); BILIRUBIN, TOTAL 0.6 mg/dL (0.0-1.4); BUN 18 mg/dL (8-23); BUN/CREATININE RATIO 31 (12-20 (CALC)); CARBON DIOXIDE 23 mmol/l (22-30); CHLORIDE 108 mmol/l (95-108); CREATININE 0.6 mg/dL (0.5-1.0); GFR > 60 ML/MIN (>=60 (CALC)); GFR FOR AFR.AMER. > 60 ML/MIN (>=60 (CALC)); POTASSIUM 3.6 mmol/l (3.5-5.1); SGOT/AST 26 u/l (9-36); SODIUM 140 mmol/l (137-146); TOTAL PROTEIN 6.8 g/dL (6.3-8.2)
[2018-10-08 21:52] LABS: MYOGLOBIN 45 ng/mL (0 - 62)
[2018-10-08 22:35] LABS: URINE BILIRUBIN - DIPSTICK NEGATIVE (NEGATIVE); URINE BLOOD DIPSTICK NEGATIVE (NEGATIVE); URINE COLOR YELLOW; URINE GLUCOSE - DIPSTICK NEGATIVE (NEGATIVE); URINE KETONE NEGATIVE (NEGATIVE); URINE LEUK ESTERASE NEGATIVE (NEGATIVE); URINE NITRITE - DIPSTICK NEGATIVE (Negative); URINE PROTEIN - DIPSTICK NEGATIVE (NEG-TRACE); URINE UROBILINOGEN - DIPSTICK 0.2 E.U./dL (0.2)
[2018-10-09 00:29] VITALS: BP 158/73
== END 2018-10-09 00:26 | disposition home or self-care (01) ==
LOC: ED 20:27 → ED-I 22:40 → ED 10-09 00:26
PROVIDERS: Emergency Medicine
DX: D64.9 Anemia, unspecified (principal); I45.10 Unspecified right bundle-branch block

== ENCOUNTER 2018-10-25 17:07 | Emergency (ER) | payer MEDICARE ==
[~2018-10-25] VITALS: Ht 157.5 cm; Wt 88.5 kg
[~2018-10-25 17:07] MED LIST changes: +DILTIAZEM60 MG PO
[2018-10-25 17:35] LABS: GFR > 60 ML/MIN (>=60 (CALC)); GFR FOR AFR.AMER. > 60 ML/MIN (>=60 (CALC))
[2018-10-25 17:37] LABS: HEMATOCRIT 40.4 % (37.0-47.0); HEMOGLOBIN 13.2 g/dl (12.0-16.0); IMMATURE GRANULOCYTES 0.2 % (0.0-5.0); MEAN CELL VOLUME 83.8 fL CALC (80.0-100.0); MEAN CORPUSCULAR HGB 27.4 pG CALC (26.0-32.0); MEAN CORPUSCULAR HGB CONC 32.7 g/L CALC (32.0-36.0); NEUT# 2.96 thou/uL (2.00-7.15); RED BLOOD COUNT 4.82 mill/uL (4.20-5.60); RED CELL DISTRI WIDTH 13.7 % (11.5-15.5)
[2018-10-25 17:44] LABS: ALBUMIN 4.8 g/dL (3.2-5.0); ALKALINE PHOSPHATASE 111 u/l (38-126); ANION GAP 14 (6-22 (CALC)); BILIRUBIN, TOTAL 0.7 mg/dL (0.0-1.4); BUN 13 mg/dL (8-23); BUN/CREATININE RATIO 19 (12-20 (CALC)); CARBON DIOXIDE 25 mmol/l (22-30); CHLORIDE 106 mmol/l (95-108); CREATININE 0.7 mg/dL (0.5-1.0); GFR > 60 ML/MIN (>=60 (CALC)); GFR FOR AFR.AMER. > 60 ML/MIN (>=60 (CALC)); SGOT/AST 41 u/l (9-36); SODIUM 141 mmol/l (137-146)
[2018-10-25 17:53] LABS: INTERNATIONAL NORMALIZED RATIO 0.9 RATIO (0.7-1.3); PROTHROMBIN TIME 9.9 SECONDS (9.0-12.5); TOTAL PROTEIN 8.4 g/dL (6.3-8.2)
[2018-10-25 17:56] LABS: MYOGLOBIN 43 ng/mL (0 - 62)
[2018-10-25 19:38] VITALS: BP 155/72
== END 2018-10-25 19:38 | disposition short-term general hospital (02) ==
LOC: ED 17:07
PROVIDERS: Emergency Medicine
DX: R41.82 Altered mental status, unspecified (principal); R51 Headache; R42 Dizziness and giddiness

== ENCOUNTER 2018-10-28 08:29 | Observation (INO) | payer MEDICARE ==
[~2018-10-28] VITALS: Ht 157.5 cm; Wt 76.4 kg
[2018-10-28 09:32] LABS: HEMATOCRIT 41.2 % (37.0-47.0); HEMOGLOBIN 12.7 g/dl (12.0-16.0); IMMATURE GRANULOCYTES 0.5 % (0.0-5.0); MEAN CELL VOLUME 88.8 fL CALC (80.0-100.0); MEAN CORPUSCULAR HGB 27.4 pG CALC (26.0-32.0); MEAN CORPUSCULAR HGB CONC 30.8 g/L CALC (32.0-36.0); NEUT# 4.76 thou/uL (2.00-7.15); RED BLOOD COUNT 4.64 mill/uL (4.20-5.60); RED CELL DISTRI WIDTH 13.6 % (11.5-15.5)
[2018-10-28 09:55] LABS: ALBUMIN 4.3 g/dL (3.2-5.0); ALKALINE PHOSPHATASE 96 u/l (38-126); ANION GAP 15 (6-22 (CALC)); BILIRUBIN, TOTAL 0.8 mg/dL (0.0-1.4); BUN 17 mg/dL (8-23); BUN/CREATININE RATIO 18 (12-20 (CALC)); CARBON DIOXIDE 22 mmol/l (22-30); CHLORIDE 108 mmol/l (95-108); CREATININE 0.9 mg/dL (0.5-1.0); GFR > 60 ML/MIN (>=60 (CALC)); GFR FOR AFR.AMER. > 60 ML/MIN (>=60 (CALC)); LIPASE 78 u/l (23-300); POTASSIUM 3.5 mmol/l (3.5-5.1); SGOT/AST 38 u/l (9-36); SODIUM 142 mmol/l (137-146); TOTAL PROTEIN 7.3 g/dL (6.3-8.2)
[2018-10-28] MEDS ORDERED: ACETAMINOP160 MG/5 M PO (10:32)
[2018-10-28 12:00] VITALS: BP 140/62
[2018-10-28 14:35] VITALS: BP 116/74
[2018-10-28] MEDS ORDERED: ZANTAC 150 PO (15:05)
[2018-10-28] MEDS ORDERED: TOPAMAX50 M1 PO (16:23)
[2018-10-28 19:21] VITALS: BP 126/61
[2018-10-28 22:26] LABS: URINE BILIRUBIN - DIPSTICK NEGATIVE (NEGATIVE); URINE BLOOD DIPSTICK NEGATIVE (NEGATIVE); URINE COLOR YELLOW; URINE GLUCOSE - DIPSTICK NEGATIVE (NEGATIVE); URINE KETONE NEGATIVE (NEGATIVE); URINE LEUK ESTERASE NEGATIVE (NEGATIVE); URINE NITRITE - DIPSTICK NEGATIVE (Negative); URINE PH 5.5 (4.5-8.0); URINE PROTEIN - DIPSTICK NEGATIVE (NEG-TRACE); URINE SPECIFIC GRAVITY <=1.005; URINE UROBILINOGEN - DIPSTICK 0.2 E.U./dL (0.2)
[2018-10-29] VITALS (8 sets, daily range): BP systolic 96–137; BP diastolic 42–80
[2018-10-29 05:07] LABS: HEMATOCRIT 37.1 % (37.0-47.0); HEMOGLOBIN 12.1 g/dl (12.0-16.0); IMMATURE GRANULOCYTES 0.2 % (0.0-5.0); MEAN CELL VOLUME 85.3 fL CALC (80.0-100.0); MEAN CORPUSCULAR HGB 27.8 pG CALC (26.0-32.0); MEAN CORPUSCULAR HGB CONC 32.6 g/L CALC (32.0-36.0); NEUT# 2.92 thou/uL (2.00-7.15); RED BLOOD COUNT 4.35 mill/uL (4.20-5.60); RED CELL DISTRI WIDTH 13.5 % (11.5-15.5)
[2018-10-29 05:28] LABS: ALBUMIN 3.6 g/dL (3.2-5.0); ALKALINE PHOSPHATASE 78 u/l (38-126); ANION GAP 13 (6-22 (CALC)); BILIRUBIN, TOTAL 0.9 mg/dL (0.0-1.4); BUN 10 mg/dL (8-23); BUN/CREATININE RATIO 17 (12-20 (CALC)); CARBON DIOXIDE 21 mmol/l (22-30); CHLORIDE 111 mmol/l (95-108); CREATININE 0.6 mg/dL (0.5-1.0); GFR > 60 ML/MIN (>=60 (CALC)); GFR FOR AFR.AMER. > 60 ML/MIN (>=60 (CALC)); POTASSIUM 3.3 mmol/l (3.5-5.1); SGOT/AST 30 u/l (9-36); SODIUM 142 mmol/l (137-146); TOTAL PROTEIN 6.3 g/dL (6.3-8.2)
[2018-10-30] VITALS (9 sets, daily range): BP systolic 114–158; BP diastolic 65–81
[2018-10-30 05:13] LABS: HEMATOCRIT 35.1 % (37.0-47.0); HEMOGLOBIN 11.3 g/dl (12.0-16.0); IMMATURE GRANULOCYTES 0.2 % (0.0-5.0); MEAN CELL VOLUME 86.7 fL CALC (80.0-100.0); MEAN CORPUSCULAR HGB 27.9 pG CALC (26.0-32.0); MEAN CORPUSCULAR HGB CONC 32.2 g/L CALC (32.0-36.0); NEUT# 3.13 thou/uL (2.00-7.15); RED BLOOD COUNT 4.05 mill/uL (4.20-5.60); RED CELL DISTRI WIDTH 13.6 % (11.5-15.5)
[2018-10-30 05:40] LABS: ALBUMIN 3.1 g/dL (3.2-5.0); ALKALINE PHOSPHATASE 70 u/l (38-126); ANION GAP 10 (6-22 (CALC)); BILIRUBIN, TOTAL 0.6 mg/dL (0.0-1.4); BUN 11 mg/dL (8-23); BUN/CREATININE RATIO 19 (12-20 (CALC)); CARBON DIOXIDE 20 mmol/l (22-30); CHLORIDE 112 mmol/l (95-108); CREATININE 0.6 mg/dL (0.5-1.0); GFR > 60 ML/MIN (>=60 (CALC)); GFR FOR AFR.AMER. > 60 ML/MIN (>=60 (CALC)); POTASSIUM 3.4 mmol/l (3.5-5.1); SGOT/AST 25 u/l (9-36); SODIUM 138 mmol/l (137-146); TOTAL PROTEIN 5.9 g/dL (6.3-8.2)
[2018-10-31 04:00] VITALS: BP 144/74
[2018-10-31 08:35] VITALS: BP 147/74
[2018-10-31 08:40] VITALS: BP 159/81
[2018-10-31 08:45] VITALS: BP 148/75
[2018-10-31 11:18] VITALS: BP 126/72
[2018-10-31 11:38] LABS: HEMATOCRIT 38.1 % (37.0-47.0); HEMOGLOBIN 12.2 g/dl (12.0-16.0); IMMATURE GRANULOCYTES 0.2 % (0.0-5.0); MEAN CORPUSCULAR HGB 27.2 pG CALC (26.0-32.0); NEUT# 3.25 thou/uL (2.00-7.15); RED BLOOD COUNT 4.48 mill/uL (4.20-5.60); RED CELL DISTRI WIDTH 13.2 % (11.5-15.5)
[2018-10-31 11:59] LABS: ANION GAP 13 (6-22 (CALC)); BUN 5 mg/dL (8-23); BUN/CREATININE RATIO 10 (12-20 (CALC)); CARBON DIOXIDE 23 mmol/l (22-30); CHLORIDE 109 mmol/l (95-108); CREATININE 0.6 mg/dL (0.5-1.0); GFR > 60 ML/MIN (>=60 (CALC)); GFR FOR AFR.AMER. > 60 ML/MIN (>=60 (CALC)); POTASSIUM 3.6 mmol/l (3.5-5.1); SODIUM 141 mmol/l (137-146)
[2018-10-31 16:37] VITALS: BP 123/61; BP 144/73
== END 2018-10-31 17:10 | disposition home or self-care (01) ==
LOC: ED 08:29 → ED-I 10:42 → ED 10:59 → MS2 11:00
PROVIDERS: Family Medicine; Nurse Practitioner Family; ADMIT Internal Medicine Geriatric Medicine; ATTEND Internal Medicine
DX: R55 Syncope and collapse (principal); I25.10 Atherosclerotic heart disease of native coronary artery without angina pectoris; I12.9 Hypertensive chronic kidney disease with stage 1 through stage 4 chronic kidney disease, or unspecified chronic kidney disease; N18.9 Chronic kidney disease, unspecified; I95.9 Hypotension, unspecified; R53.1 Weakness; T42.6X5A Adverse effect of other antiepileptic and sedative-hypnotic drugs, initial encounter; T42.76XA Underdosing of unspecified antiepileptic and sedative-hypnotic drugs, initial encounter; Z91.128 Patient's intentional underdosing of medication regimen for other reason

== ENCOUNTER 2018-11-19 22:43 | Emergency (ER) | payer MEDICARE ==
[~2018-11-19] VITALS: Ht 157.5 cm; Wt 75.0 kg
[~2018-11-19 22:43] MED LIST changes: +ACETAMINOP160 MG/5 M PO; +TOPAMAX50 M1 PO; +ZANTAC 150 PO
[2018-11-19] MEDS ORDERED: TOPAMAX50 M1 PO (23:26)
[2018-11-19 23:29] LABS: HEMATOCRIT 37.2 % (37.0-47.0); HEMOGLOBIN 11.9 g/dl (12.0-16.0); IMMATURE GRANULOCYTES 0.2 % (0.0-5.0); MEAN CELL VOLUME 86.3 fL CALC (80.0-100.0); MEAN CORPUSCULAR HGB 27.6 pG CALC (26.0-32.0); NEUT# 3.12 thou/uL (2.00-7.15); RED BLOOD COUNT 4.31 mill/uL (4.20-5.60); RED CELL DISTRI WIDTH 13.6 % (11.5-15.5)
[2018-11-19 23:46] LABS: ALKALINE PHOSPHATASE 91 u/l (38-126); ANION GAP 15 (6-22 (CALC)); BILIRUBIN, TOTAL 0.5 mg/dL (0.0-1.4); BUN 18 mg/dL (8-23); BUN/CREATININE RATIO 22 (12-20 (CALC)); CARBON DIOXIDE 20 mmol/l (22-30); CHLORIDE 110 mmol/l (95-108); CREATININE 0.8 mg/dL (0.5-1.0); ETHYL ALCOHOL 0 mg/dl (0-30); GFR > 60 ML/MIN (>=60 (CALC)); GFR FOR AFR.AMER. > 60 ML/MIN (>=60 (CALC)); POTASSIUM 3.4 mmol/l (3.5-5.1); SGOT/AST 31 u/l (9-36); SODIUM 141 mmol/l (137-146)
[2018-11-19 23:48] LABS: ALBUMIN 4.1 g/dL (3.2-5.0)
[2018-11-19 23:58] LABS: MYOGLOBIN 45 ng/mL (0 - 62)
[2018-11-20 00:30] LABS: URINE BILIRUBIN - DIPSTICK NEGATIVE (NEGATIVE); URINE BLOOD DIPSTICK NEGATIVE (NEGATIVE); URINE COLOR YELLOW; URINE GLUCOSE - DIPSTICK NEGATIVE (NEGATIVE); URINE KETONE NEGATIVE (NEGATIVE); URINE LEUK ESTERASE NEGATIVE (NEGATIVE); URINE NITRITE - DIPSTICK NEGATIVE (Negative); URINE PROTEIN - DIPSTICK NEGATIVE (NEG-TRACE); URINE SPECIFIC GRAVITY <=1.005; URINE UROBILINOGEN - DIPSTICK 0.2 E.U./dL (0.2)
[2018-11-20 07:40] VITALS: BP 145/63
== END 2018-11-20 07:40 | disposition home or self-care (01) ==
LOC: ED 22:43
PROVIDERS: Emergency Medicine
DX: G40.909 Epilepsy, unspecified, not intractable, without status epilepticus (principal)

== ENCOUNTER 2019-02-04 08:20 | Day surgery (SDC) | payer MEDICARE ==
[~2019-02-04 08:20] MED LIST changes: +FAMOTIDINE20 M1 PO; +GNP VITAMIN8000 UNIT PO; +LYSINE500 M1 PO; +MAG OXIDE400 MG PO; +NATURAL VITA100 UNIT PO; +OCUVITE ADULT FORMUL PO; +POTASSIUM99 MG PO; +TURMERI1 PO; +VITAMIN B CO PO; +VITAMIN D33000 UNIT PO
[2019-02-04 11:17] VITALS: BP 121/62
== END 2019-02-04 11:35 | disposition home or self-care (01) ==
LOC: ENDO 08:20 → ORM 09:15 → ENDO 10:10
PROVIDERS: ATTEND Internal Medicine Gastroenterology
PROC: 0DB98ZX Excision of Duodenum, Via Natural or Artificial Opening Endoscopic, Diagnostic (ICD-10-PCS; principal; 2019-02-04)
PROC: 0DB78ZX Excision of Stomach, Pylorus, Via Natural or Artificial Opening Endoscopic, Diagnostic (ICD-10-PCS; 2019-02-04)
PROC: 0DBK8ZX Excision of Ascending Colon, Via Natural or Artificial Opening Endoscopic, Diagnostic (ICD-10-PCS; 2019-02-04)
PROC: 0DBH8ZX Excision of Cecum, Via Natural or Artificial Opening Endoscopic, Diagnostic (ICD-10-PCS; 2019-02-04)
PROC: 0DBE8ZX Excision of Large Intestine, Via Natural or Artificial Opening Endoscopic, Diagnostic (ICD-10-PCS; 2019-02-04)
DX: K29.70 Gastritis, unspecified, without bleeding (principal); K44.9 Diaphragmatic hernia without obstruction or gangrene; D12.2 Benign neoplasm of ascending colon; K57.30 Diverticulosis of large intestine without perforation or abscess without bleeding; D12.0 Benign neoplasm of cecum; K64.4 Residual hemorrhoidal skin tags; K64.8 Other hemorrhoids; Z80.0 Family history of malignant neoplasm of digestive organs

== ENCOUNTER 2019-04-03 11:57 | Emergency (ER) | payer MEDICARE ==
[2019-04-03] MEDS ORDERED: AMOXICILLIN875 MG PO (12:40)
[2019-04-03] MEDS ORDERED: EPINASTINE HCL OD (12:40)
[2019-04-03 12:55] VITALS: BP 128/62
== END 2019-04-03 12:55 | disposition home or self-care (01) ==
LOC: ED 11:57
DX: H00.012 Hordeolum externum right lower eyelid (principal)

== ENCOUNTER 2020-06-19 | Emergency (ER) | payer MEDICARE ==
[~2020-06-19] MED LIST changes: +AMOXICILLIN875 MG PO; +EPINASTINE HCL OD
[2020-06-19] MEDS ORDERED: ALLEGRA180 MG PO (00:32)
[2020-06-19] MEDS ORDERED: ASPIRIN81 MG PO (00:32)
[2020-06-19] MEDS ORDERED: CLARITIN10 M1 PO (00:33)
[2020-06-19] MEDS ORDERED: PEPCID20 MG PO (00:34)
[2020-06-19] MEDS ORDERED: SINGULAIR10 MG PO (00:35)
[2020-06-19] MEDS ORDERED: CVS OMEPRAZOLE20 M1 PO (00:35)
[2020-06-19] MEDS ORDERED: ZYRTEC10 MG PO (00:36)
[2020-06-19] MEDS ORDERED: PROAIR HFA IN (00:37)
[2020-06-19] MEDS ORDERED: XOPENEX HF45 MCG/ACT (00:37)
[2020-06-19] MEDS ORDERED: FLOVENT HF110 MCG/AC (00:37)
[2020-06-19] MEDS ORDERED: ULTRAM50 MG PO (02:39)
== END 2020-06-19 02:56 | disposition home or self-care (01) ==
DX: S00.93XA Contusion of unspecified part of head, initial encounter (principal); S20.211A Contusion of right front wall of thorax, initial encounter; S80.02XA Contusion of left knee, initial encounter; S16.1XXA Strain of muscle, fascia and tendon at neck level, initial encounter; J45.909 Unspecified asthma, uncomplicated; W01.0XXA Fall on same level from slipping, tripping and stumbling without subsequent striking against object, initial encounter; Y92.009 Unspecified place in unspecified non-institutional (private) residence as the place of occurrence of the external cause; Z88.9 Allergy status to unspecified drugs, medicaments and biological substances; Z86.73 Personal history of transient ischemic attack (TIA), and cerebral infarction without residual deficits

== ENCOUNTER 2020-06-30 20:02 | Emergency (ER) | payer MEDICARE ==
[~2020-06-30 20:02] MED LIST changes: +ALLEGRA180 MG PO; +ASPIRIN81 MG PO; +CLARITIN10 M1 PO; +CVS OMEPRAZOLE20 M1 PO; +FLOVENT HF110 MCG/AC; +PEPCID20 MG PO; +PROAIR HFA IN; +SINGULAIR10 MG PO; +ULTRAM50 MG PO; +XOPENEX HF45 MCG/ACT; +ZYRTEC10 MG PO
[2020-06-30 20:47] VITALS: BP 175/82
== END 2020-06-30 20:57 | disposition home or self-care (01) ==
LOC: ED 20:02
DX: S51.812A Laceration without foreign body of left forearm, initial encounter (principal); J45.909 Unspecified asthma, uncomplicated; W10.9XXA Fall (on) (from) unspecified stairs and steps, initial encounter; Y92.009 Unspecified place in unspecified non-institutional (private) residence as the place of occurrence of the external cause; Z86.73 Personal history of transient ischemic attack (TIA), and cerebral infarction without residual deficits

== ENCOUNTER 2020-09-08 11:19 | Emergency (ER) | payer MEDICARE ==
[~2020-09-08] VITALS: Ht 157.5 cm; Wt 75.0 kg
[2020-09-08 11:36] LABS: HEMATOCRIT 41.3 % (37.0-47.0); HEMOGLOBIN 13.5 g/dl (12.0-16.0); IMMATURE GRANULOCYTES 0.2 % (0.0-5.0); MEAN CELL VOLUME 83.4 fL CALC (80.0-100.0); MEAN CORPUSCULAR HGB 27.3 pG CALC (26.0-32.0); MEAN CORPUSCULAR HGB CONC 32.7 g/dL CAL (32.0-36.0); NEUT# 2.69 thou/uL (2.00-7.15); RED BLOOD COUNT 4.95 mill/uL (4.20-5.60); RED CELL DISTRI WIDTH 13.3 % (11.5-15.5)
[2020-09-08 11:54] LABS: ALBUMIN 4.2 g/dL (3.2-5.0); ALKALINE PHOSPHATASE 130 u/l (38-126); ANION GAP 13 (6-22 (CALC)); BILIRUBIN, TOTAL 0.7 mg/dL (0.0-1.4); BUN 20 mg/dL (8-23); BUN/CREATININE RATIO 28 (12-20 (CALC)); CARBON DIOXIDE 20 mmol/l (22-30); CHLORIDE 108 mmol/l (95-108); CREATININE 0.7 mg/dL (0.5-1.0); GFR > 60 ML/MIN (>=60 (CALC)); GFR FOR AFR.AMER. > 60 ML/MIN (>=60 (CALC)); LIPASE 107 u/l (23-300); POTASSIUM 3.8 mmol/l (3.5-5.1); SGOT/AST 41 u/l (9-36); SODIUM 138 mmol/l (137-146); TOTAL PROTEIN 7.9 g/dL (6.3-8.2)
--- NOTE | 2020-09-08 12:33 | NUR ---
pt needed tremendous coaxing to complete hand held nebulazed bronchodilator therapy. bbs=/clr. rr=18. hr=83. spo2 on ra= 98. nad. vss.
[2020-09-08] MEDS ORDERED: MEDDOSEPAK PO ×2 (14:19→14:45)
[2020-09-08 14:23] VITALS: BP 183/75
== END 2020-09-08 14:48 | disposition home or self-care (01) ==
LOC: ED 11:19
DX: T63.461A Toxic effect of venom of wasps, accidental (unintentional), initial encounter (principal); T78.2XXA Anaphylactic shock, unspecified, initial encounter; E78.5 Hyperlipidemia, unspecified; J45.909 Unspecified asthma, uncomplicated; Z86.73 Personal history of transient ischemic attack (TIA), and cerebral infarction without residual deficits

== ENCOUNTER 2020-11-06 14:16 | Emergency (ER) | payer MEDICARE ==
[~2020-11-06] VITALS: Ht 157.5 cm; Wt 80.0 kg
[2020-11-06 18:04] LABS: HEMATOCRIT 43.4 % (37.0-47.0); HEMOGLOBIN 13.7 g/dl (12.0-16.0); MEAN CELL VOLUME 87.7 fL CALC (80.0-100.0); MEAN CORPUSCULAR HGB 27.7 pG CALC (26.0-32.0); MEAN CORPUSCULAR HGB CONC 31.6 g/dL CAL (32.0-36.0); NEUT# 3.2 thou/uL (2.00-7.15); RED BLOOD COUNT 4.95 mill/uL (4.20-5.60); RED CELL DISTRI WIDTH 13.4 % (11.5-15.5)
[2020-11-06 18:14] LABS: ALBUMIN 4.6 g/dL (3.2-5.0); ALKALINE PHOSPHATASE 121 u/l (38-126); ANION GAP 16 (6-22 (CALC)); BILIRUBIN, TOTAL 0.7 mg/dL (0.0-1.4); BUN 12 mg/dL (8-23); BUN/CREATININE RATIO 20 (12-20 (CALC)); CARBON DIOXIDE 20 mmol/l (22-30); CHLORIDE 107 mmol/l (95-108); CREATININE 0.6 mg/dL (0.5-1.0); GFR > 60 ML/MIN (>=60 (CALC)); GFR FOR AFR.AMER. > 60 ML/MIN (>=60 (CALC)); POTASSIUM 4.2 mmol/l (3.5-5.1); SGOT/AST 48 u/l (9-36); SODIUM 138 mmol/l (137-146); TOTAL PROTEIN 8.4 g/dL (6.3-8.2)
[2020-11-06 18:59] VITALS: BP 142/68
== END 2020-11-06 19:02 | disposition home or self-care (01) ==
LOC: ED 14:16
PROVIDERS: Emergency Medicine
DX: T78.2XXA Anaphylactic shock, unspecified, initial encounter (principal); R55 Syncope and collapse; D89.40 Mast cell activation, unspecified; I73.00 Raynaud's syndrome without gangrene; J45.909 Unspecified asthma, uncomplicated; Z86.73 Personal history of transient ischemic attack (TIA), and cerebral infarction without residual deficits

== ENCOUNTER 2021-09-21 08:53 | Emergency (ER) | payer MEDICARE ==
[~2021-09-21] VITALS: Ht 157.5 cm; Wt 77.2 kg
[2021-09-21] MEDS ORDERED: OMNI-PAC300 MG PO (10:05)
[2021-09-21 10:20] VITALS: BP 130/74
== END 2021-09-21 10:21 | disposition home or self-care (01) ==
LOC: ED 08:53
DX: S90.852A Superficial foreign body, left foot, initial encounter (principal); J45.909 Unspecified asthma, uncomplicated; W45.8XXA Other foreign body or object entering through skin, initial encounter; Y92.009 Unspecified place in unspecified non-institutional (private) residence as the place of occurrence of the external cause; Z86.73 Personal history of transient ischemic attack (TIA), and cerebral infarction without residual deficits

== ENCOUNTER 2022-04-23 19:02 | Emergency (ER) | payer MEDICARE ==
[~2022-04-23] VITALS: Ht 154.9 cm; Wt 80.0 kg
[~2022-04-23 19:02] MED LIST changes: +OMNI-PAC300 MG PO
[2022-04-23 20:45] VITALS: BP 163/79
[2022-04-23 21:01] VITALS: BP 133/71
[2022-04-23 21:15] VITALS: BP 139/69
[2022-04-23 21:30] VITALS: BP 139/73
[2022-04-23 21:34] VITALS: BP 139/73
== END 2022-04-23 21:44 | disposition home or self-care (01) ==
LOC: ED 19:02
PROC: 0HQFXZZ Repair Right Hand Skin, External Approach (ICD-10-PCS; principal; 2022-04-23)
DX: S61.212A Laceration without foreign body of right middle finger without damage to nail, initial encounter (principal); W45.8XXA Other foreign body or object entering through skin, initial encounter

== ENCOUNTER 2022-05-28 08:54 | Emergency (ER) | payer MEDICARE ==
[~2022-05-28] VITALS: Ht 154.9 cm; Wt 88.6 kg
[2022-05-28] VITALS (14 sets, daily range): BP systolic 131–166; BP diastolic 69–97
[2022-05-28 09:53] LABS: BASO% 0.6 % (0-3); EOS% 3.4 % (0-8); HEMATOCRIT 39.8 % (37.0-47.0); HEMOGLOBIN 12.7 g/dl (12.0-16.0); LYMPH% 40.2 % (15-41); MEAN CORPUSCULAR HGB 27.1 pG CALC (26.0-32.0); MEAN CORPUSCULAR HGB CONC 31.9 g/dL CAL (32.0-36.0); MONO% 8.5 % (2-13); NEUT# 2.39 thou/uL (2.00-7.15); NEUT% 47.3 % (42-76); RED BLOOD COUNT 4.68 mill/uL (4.20-5.60)
[2022-05-28 09:56] LABS: ALBUMIN 4.5 g/dL (3.2-5.0); ALKALINE PHOSPHATASE 106 u/l (38-126); ANION GAP 16 (6-22 (CALC)); BILIRUBIN, TOTAL 0.6 mg/dL (0.02-1.3); BUN 21 mg/dL (8-23); BUN/CREATININE RATIO 30 (12-20 (CALC)); CARBON DIOXIDE 23 mmol/l (22-30); CHLORIDE 105 mmol/l (95-108); CREATININE 0.7 mg/dL (0.5-1.0); GFR FOR AFR.AMER. > 60 ML/MIN (>=60 (CALC)); GFR OTHER RACES > 60 ML/MIN (>=60 (CALC)); POTASSIUM 3.9 mmol/l (3.5-5.1); SGOT/AST 44 u/l (9-36); SODIUM 140 mmol/l (137-146); TOTAL PROTEIN 7.8 g/dL (6.3-8.2)
== END 2022-05-28 13:16 | disposition home or self-care (01) ==
LOC: ED 08:54
PROVIDERS: Family Medicine
DX: M94.0 Chondrocostal junction syndrome [Tietze] (principal); D47.02 Systemic mastocytosis; J45.909 Unspecified asthma, uncomplicated; Z86.73 Personal history of transient ischemic attack (TIA), and cerebral infarction without residual deficits

== ENCOUNTER 2022-07-21 22:18 | Emergency (ER) | payer MEDICARE ==
[~2022-07-21] VITALS: Ht 154.9 cm; Wt 78.7 kg
[2022-07-22 00:23] VITALS: BP 145/75
== END 2022-07-22 00:33 | disposition home or self-care (01) ==
LOC: ED 22:18
DX: T78.40XA Allergy, unspecified, initial encounter (principal); D47.02 Systemic mastocytosis; J45.909 Unspecified asthma, uncomplicated; I73.00 Raynaud's syndrome without gangrene; Z88.9 Allergy status to unspecified drugs, medicaments and biological substances; Z86.73 Personal history of transient ischemic attack (TIA), and cerebral infarction without residual deficits

== ENCOUNTER 2023-03-26 19:40 | Emergency (ER) | payer MEDICARE ==
[2023-03-26] VITALS (18 sets, daily range): BP systolic 146–193; BP diastolic 63–95
[~2023-03-26] VITALS: Ht 160 cm; Wt 80.0 kg
[2023-03-26 20:59] LABS: BASO% 0.5 % (0-3); EOS% 1.7 % (0-8); HEMATOCRIT 40.8 % (37.0-47.0); HEMOGLOBIN 13.4 g/dl (12.0-16.0); IMMATURE GRANULOCYTES 0.2 % (0.0-5.0); LYMPH% 32.9 % (15-41); MEAN CELL VOLUME 84.5 fL CALC (80.0-100.0); MEAN CORPUSCULAR HGB 27.7 pG CALC (26.0-32.0); MEAN CORPUSCULAR HGB CONC 32.8 g/dL CAL (32.0-36.0); MONO% 7.5 % (2-13); NEUT# 3.44 thou/uL (2.00-7.15); NEUT% 57.2 % (42-76); RED BLOOD COUNT 4.83 mill/uL (4.20-5.60); RED CELL DISTRI WIDTH 13.3 % (11.5-15.5)
[2023-03-26 21:05] LABS: ALBUMIN 4.7 g/dL (3.2-5.0); ALKALINE PHOSPHATASE 128 u/l (38-126); ANION GAP 14 (6-22 (CALC)); BILIRUBIN, TOTAL 0.8 mg/dL (0.02-1.3); BUN 18 mg/dL (8-23); BUN/CREATININE RATIO 22 (12-20 (CALC)); CARBON DIOXIDE 21 mmol/l (22-30); CHLORIDE 108 mmol/l (95-108); CREATININE 0.8 mg/dL (0.5-1.0); GFR FOR AFR.AMER. > 60 ML/MIN (>=60 (CALC)); GFR OTHER RACES > 60 ML/MIN (>=60 (CALC)); SGOT/AST 62 u/l (9-36); SODIUM 139 mmol/l (137-146); TOTAL PROTEIN 7.9 g/dL (6.3-8.2)
[2023-03-26 22:41] LABS: ETHYL ALCOHOL 0 mg/dl (0-30); LIPASE 99 u/l (23-300)
[2023-03-27 00:30] LABS: MYOGLOBIN 55 ng/mL (14.3-65.8)
[2023-03-27 02:13] LABS: URINE BILIRUBIN - DIPSTICK Negative (NEGATIVE); URINE BLOOD DIPSTICK Negative (NEGATIVE); URINE GLUCOSE - DIPSTICK Negative (NEGATIVE); URINE KETONE Negative (NEGATIVE); URINE LEUK ESTERASE Negative (NEGATIVE); URINE NITRITE - DIPSTICK Negative (Negative); URINE PH 5.5 (4.5-8.0); URINE PROTEIN - DIPSTICK Negative (NEG-TRACE); URINE UROBILINOGEN - DIPSTICK 0.2 E.U./dL (0.2)
[2023-03-27 02:14] LABS: URINE COLOR Yellow
[2023-03-27 07:44] VITALS: BP 133/71
[2023-03-27 07:55] VITALS: BP 133/71
== END 2023-03-27 07:56 | disposition home or self-care (01) ==
LOC: ED 19:40
PROVIDERS: Family Medicine
DX: D47.02 Systemic mastocytosis (principal)

== ENCOUNTER 2024-01-20 15:57 | Emergency (ER) | payer MEDICARE ==
[~2024-01-20] VITALS: Ht 160 cm; Wt 77.0 kg
[2024-01-20 16:30] VITALS: BP 152/61
[2024-01-20 16:45] VITALS: BP 152/68
[2024-01-20] MEDS ORDERED: AMOX/K CLAV875 M1 PO (16:58)
[2024-01-20 17:01] VITALS: BP 152/68
== END 2024-01-20 17:05 | disposition home or self-care (01) ==
LOC: ED 15:57
DX: S81.812A Laceration without foreign body, left lower leg, initial encounter (principal); W61.39XA Other contact with chicken, initial encounter

== ENCOUNTER 2024-02-12 18:40 | Emergency (ER) | payer MEDICARE ==
[~2024-02-12] VITALS: Ht 160 cm; Wt 77.3 kg
[~2024-02-12 18:40] MED LIST changes: +AMOX/K CLAV875 M1 PO
[2024-02-12 19:22] VITALS: BP 151/60
[2024-02-12 19:26] VITALS: BP 141/59
[2024-02-12 19:31] VITALS: BP 136/65
[2024-02-12 20:01] VITALS: BP 144/72
[2024-02-12 20:30] VITALS: BP 148/63
[2024-02-12 20:35] VITALS: BP 147/63
== END 2024-02-12 20:28 | disposition home or self-care (01) ==
LOC: ED 18:40
DX: I10 Essential (primary) hypertension (principal)